=== PATIENT | female | born 1965 | race Two or more races ===

== ENCOUNTER → 2017-06-10 | Day surgery (SDC) | payer OTHER ==
[~2017-06-10] MED LIST: GLIM4TAB2 PO; IV RINGERS,LACTATED 1000ML 1,000 ML IV SCH; LIDOCAINE 1% PF 2 ML VIAL. ID PRN; LIDOCAINE 2% PF Vial for OR 5 ML VIAL. ONE; LISI10TA2 PO; METF-620 PO; MIDAZOLAM HCL/PF 2 MG/2 ML VIAL. IV PRN; PROPOFOL 60 ML IV ONE; ZOLP5TAB5 PO; fentaNYL PF VIAL 100 MCG/2 ML VIAL IV PRN
[2017-06-10 10:30] VITALS: BP 131/61
--- NOTE | 2017-06-10 12:04 | PREOP HP ---
DATE OF SERVICE: 06/10/2017 DATE OF PROCEDURE: 06/10/2017. REQUESTING PHYSICIAN: Dr. Davidson. PRIMARY CARE PHYSICIAN: Dr. Davidson. REASON FOR PROCEDURE: Colorectal cancer screening. HISTORY OF PRESENT ILLNESS: This is a 51-year-old female who presents for colorectal cancer screening. She had a colonoscopy in 2004 that showed internal hemorrhoids. She normally has 2 stools per week. Her family history is negative for colorectal cancer. Otherwise, she admits to reflux that has helped with Zegerid. ALLERGIES: No known drug allergies. PAST MEDICAL HISTORY: Significant for: 1. Reflux. 2. Diabetes. 3. Constipation. 4. Hemorrhoids. FAMILY MEDICAL HISTORY: Breast cancer and diabetes. SOCIAL HISTORY: No tobacco, alcohol or IV drug abuse. MEDICATIONS: 1. Lisinopril. 2. Metformin. 3. Glimepiride. REVIEW OF SYSTEMS: Her 10-point review of systems was done. It is significant for fatigue, decreased hearing and ringing in her ears, snoring, breast pain, leg cramps, chest pain, choking, constipation, heartburn and hoarseness, joint pain and muscle pain as well as dizziness and melena. PHYSICAL EXAMINATION: VITAL SIGNS: She is afebrile and her vital signs are stable. GENERAL: She is a well-developed, well-nourished, female in no apparent distress. HEENT: Oropharynx is clear. CARDIOVASCULAR: S1, S2. LUNGS: Clear. ABDOMEN: Normoactive bowel sounds, soft, nontender, nondistended. EXTREMITIES: No edema. NEUROLOGIC: Awake, alert and oriented x 3. ASSESSMENT AND PLAN: 1. Colorectal cancer screening. Risks and benefits including bleeding, perforation, non-diagnosis and sedation were explained. She has agreed to proceed. 2. Reflux. We will proceed with an upper endoscopy for further evaluation. Continue Zegerid at that time. Thank you for allowing me to participate in the care of this patient. NAVEEN CLAUDIO MD DR: ISAIAH/janae JOB#: [id number] / [id number] ZACKERY Butt MD
--- NOTE | 2017-06-14 10:57 | PATHOLOGY ---
PATHOLOGY REPORT * * * * * * * * FINAL DIAGNOSIS: A. Small intestinal mucosa, "small bowel biopsy": - No obvious diagnostic changes. - There is no evidence of acute cryptitis, granulomas, adenomatous change, sprue-like changes or malignancy. B. Gastric biopsy, antrum: - Mild chronic reactive gastropathy. - The immunoperoxidase stain for Helicobacter pylori is negative. C. 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 - It is indefinite for dysplasia. See comment. D. Colonic mucosa, "biopsy polyp ascending colon": - Fragments of tubular adenoma. - There is no evidence of high-grade dysplasia or malignancy. (SHA:ban; 06/11/2017) COMMENT: Part C esophagus has goblet cell metaplasia with mildly enlarged nuclei limited by inflammation. This case was also reviewed by Dr. Masood Miller. REPORT ELECTRONICALLY SIGNED BY: Price Alvarado M.D. DATE/TIME: 06/14/2017 10:56 * * * * * * * * GROSS PATHOLOGY: A. Received in formalin labeled "Satnam Lobatos, small bowel biopsy," are 3 segments of saldana soft tissue measuring 0.9 x 0.3 x 0.2 cm in aggregate dimensions and ranging from 0.3 to 0.3 cm in maximum dimension. The specimen is submitted entirely in cassette A1. B. Received in formalin labeled "Satnam Lobatos, BX gastric antrum," is a segment of saldana soft tissue measuring 0.8 cm in maximum dimension. The specimen is submitted entirely in cassette B1. C. Received in formalin labeled "Satnam Lobatos, distal esophago-BX," are 2 segments of saldana soft tissue measuring 0.7 x 0.2 x 0.3 cm in aggregate dimensions and ranging from 0.4 to 0.4 cm in maximum dimension. The specimen is submitted entirely in cassette C1. D. Received in formalin labeled "Satnam Lobatos, BX of polyp ascending colon," is a segment of saldana soft tissue measuring 0.4 cm in maximum dimension. The specimen is submitted entirely in cassette D1. (TSD; 06/10/2017) INITIAL CPT CODE(S): A; 58142 B; 76420, 46159 C; 86359 D; 49874 Professional services performed by [facility] at [address] [place] [address] Technical services performed by [facility] at [address] [place] [address], [address], [place] [address]. SPECIMEN(S) RECEIVED: A.Small bowel biopsy B.Gastric antrum C.Distal esophagus biopsy D.Biopsy polyp ascending colon CLINICAL HISTORY: Reflux, screening PATIENT: SATNAM ORTEGA /AGE: 1006/24/1965 (Age: 51) PATIENT #: [id number] ALT CASE #: SPECIMEN COLLECTION DATE: 06/10/2017 SPECIMEN RECEIVED DATE: 06/10/2017 [facility] - [address] [place] [address] - PHONE: [phone] * * * END OF REPORT * * *
== END | disposition home or self-care (01) ==
LOC: SURG 08:01
PROVIDERS: ATTEND Internal Medicine Gastroenterology
DX: Z12.11 Encounter for screening for malignant neoplasm of colon (principal); D12.2 Benign neoplasm of ascending colon; K64.0 First degree hemorrhoids; K21.0 Gastro-esophageal reflux disease with esophagitis; K31.89 Other diseases of stomach and duodenum; E11.9 Type 2 diabetes mellitus without complications; Z90.710 Acquired absence of both cervix and uterus; Z86.39 Personal history of other endocrine, nutritional and metabolic disease
CPT/HCPCS: 43239; 45380; 82962; J2704; J2001